=== PATIENT | male | born 1975 | race Caucasian/White ===

== ENCOUNTER 2016-05-03 18:55 | Emergency (ER) | payer SELFPAY ==
[~2016-05-03] VITALS: Ht 180.3 cm; Wt 67.3 kg
[2016-05-03 19:09] VITALS: BP 128/83; PULSE 69; RESP 20; TEMP 98.5; O2SAT 97
--- NOTE | 2016-05-03 19:54 | RADHPO ---
EXAM DATE/TIME: 05/03/2016 19:38 [place] COMPARISON: No previous studies available for comparison. INDICATIONS : Right ankle pain and swelling. MEDICAL HISTORY : None. SURGICAL HISTORY : None. ENCOUNTER: Initial ACUITY: 1 day PAIN SCORE: 8/10 LOCATION: Right lateral FINDINGS: Three view exam was performed of the right ankle. The bony structures are in normal alignment. No e vidence of fracture, dislocation, or soft tissue swelling. The ankle mortise is intact. No radiopaq ue foreign bodies are seen. Bony mineralization is normal. CONCLUSION: No acute fracture. Favio Mirza MD on May 03, 2016 at 19:51 Board Certified Radiologist. This report was verified electronically.
[2016-05-03] MEDS ORDERED: NAPR500 PO (20:06)
--- NOTE | 2016-05-03 20:07 | PD ---
HPI . Right ankle pain Chief Complaint: Musculoskeletal Complaint Time Seen by Provider: 19:25 Travel History International Travel<30 days: No Contact w/Intl Traveler<30days: No Traveled to known affect area: No History of Present Illness HPI Patient presents with atraumatic right ankle pain for 3 days. He has treated it with an Greg wrap. He states that the pain is exacerbated by walking and dorsi and plantar flexing his ankle. It is improved by rest. He has not taken any medication for it. He denies any injury. He states that it just started hurting at the end of the workday 3 days ago. [facility] Past Medical History Diminished Hearing: No Social History Alcohol Use: Yes Tobacco Use: Yes (1 ppd) Substance Use: No Allergies-Medications (Allergen,Severity, Reaction): Coded Allergies: No Known Allergies (Verified , 05/03/16) Reported Meds & Prescriptions Reported Meds & Active Scripts Active No Active Prescriptions or Reported Medications Review of Systems Except as stated in HPI: all other systems reviewed are Neg Musculoskeletal: Positive: Arthralgias Skin: No Change in Pigmentation Neurologic: No: Weakness, Paresthesia Physical Exam Narrative GENERAL: Awake and alert and in no acute distress. SKIN: Warm and dry. CARDIOVASCULAR: Regular rate and rhythm. RESPIRATORY: No accessory muscle use. MUSCULOSKELETAL: No obvious deformities. No edema. Tender just anterior to the lateral malleolus of the right ankle. He also has some tenderness distal to the medial malleolus. The ankle is stable. NEUROLOGICAL: Awake and alert. No obvious cranial nerve deficits. Motor grossly within normal limits. Normal speech. PSYCHIATRIC: Appropriate mood and affect; insight and judgment normal. Data Data Last Documented VS Vital Signs Date Time Temp Pulse Resp B/P Pulse Ox O2 Delivery O2 Flow Rate FiO2 05/03/16 19:09 98.5 69 20 128/83 97 Orders Ankle, Complete ([id number]) (05/03/16 19:26) [facility] Medical Decision Making Medical Screen Exam Complete: Yes Emergency Medical Condition: Yes Differential Diagnosis Differential diagnosis of joint pain includes but is not limited to arthritis, gout, sprain/strain, fracture, dislocation Narrative Course Patient presents with atraumatic right ankle pain. His x-ray is negative to my interpretation. He will be treated with NSAIA. Diagnosis Primary Impression: Right ankle pain Qualified Code: M25.571 - Acute right ankle pain Patient Instructions: General Instructions, Swollen Ankle Joint (ED) Med/Other Pt SpecificInfo: Prescription(s) given Scripts Naproxen (Naprosyn)500 Mg Cyg453 Mg PO BID #60 TAB Ref 0 Prov:Jolene Good MD 05/03/16 Disposition: 01 DISCHARGE HOME Condition: Stable Jolene Good MD May 03, 2016 20:07
== END 2016-05-03 20:26 | disposition home or self-care (01) ==
LOC: PHEFT 18:55
DX: M25.571 Pain in right ankle and joints of right foot (principal)
CPT/HCPCS: 73610; 99283